=== PATIENT | male | born 1970 | race Caucasian/White ===

== ENCOUNTER 2024-07-06 21:30 | Emergency (ER) | payer BC, SELFPAY ==
[2024-07-06 21:47] VITALS: BP 168/105
[2024-07-06 22:10] LABS: Urine Albumin Negative (Neg - Trace); Urine Bilirubin Negative (Negative); Urine Character Clear (Clear); Urine Color Yellow; Urine Glucose Negative (Negative); Urine Ketone Negative (Negative); Urine Leukocyte Negative (Negative); Urine Nitrite Negative (Negative); Urine Occult Blood Negative (Negative); Urine Urobilinogen Negative (Neg - 1+)
[2024-07-06 22:11] LABS: % Basophils 0.7 % (0-2); % Eosinophils 4.6 % (0-6); % Immature Granulocytes 0.5 % (0-0.5); % Lymphocytes 31.9 % (20.5-51.1); % Monocytes 9.8 % (1.7-9.3); % Neutrophils 52.5 % (42.2-75.2); Absolute Eosinophils 0.3 10^3/uL (0-0.7); Absolute Lymphocytes 1.8 10^3/uL (1.2-3.4); Absolute Monocytes 0.6 10^3/uL (0.1-0.6); Hematocrit 41.3 % (39.0-52.0); Hemoglobin 14.4 g/dL (13.0-18.0); Mean Corp Hgb Conc. 34.9 g/dL (33.0-37.0); Mean Corpuscular Hgb 30.2 pg (27.0-31.0); Mean Corpuscular Volume 86.6 fL (80.0-94.0); Mean Platelet Volume 8.8 fL (7.4-10.4); Nucleated Red Blood Cells % 0 % (-); Platelet Count 274 10^3/uL (130-400); Red Blood Cell Count 4.77 10^6/uL (4.70-6.10); Red Cell Dist. Width 12.4 % (11.5-14.5); White Blood Cell Count 5.6 10^3/uL (4.8-10.8)
[2024-07-06 22:28] LABS: ALT (SGPT) 40 U/L (0-50); AST (SGOT) 30 U/L (17-59); Albumin 4.3 g/dl (3.5-5.0); Alkaline Phosphatase 53 U/L (38-126); Blood Urea Nitrogen 16 mg/dl (9-20); Calcium 9.6 mg/dl (8.4-10.2); Carbon Dioxide 28 mmol/L (22-30); Chloride 102 mmol/L (98-107); Glucose 92 mg/dl (70-99); Lipase 94 U/L (23-300); Potassium 4.3 mmol/L (3.5-5.1); Sodium 138 mmol/L (135-145); Total Bilirubin 0.5 mg/dl (0.2-1.3); eGFR > 60.00
--- NOTE | 2024-07-06 22:43 | ED.GENMED ---
History of Present Illness
General
Chief Complaint: Abdominal Pain
Time Seen by Provider: 07/06/24 22:32
History of Present Illness
History of Present Illness:
Patient presents to the emergency department with bruising to the right lower quadrant. States he has been bloated over the past 5 days. He is unsure of the etiology of the bruising. Denies any injury to the area. Endorses diffuse abdominal
discomfort denies constipation or diarrhea. Endorses urinary frequency
Past History
Past History
ED Past Medical History: Hypercholesterolemia and Psychiatric (anxiety)
ED Past Surgical History: None
Social History
Tobacco: Smoker (cigars, occassional)
Alcohol: Occasional
Drug: None
Personal:
Living: with family
Employment: Employed
Family History
Family History: CAD (father AR at 61 yo)
Phy Exam
Physical Exam
Physical Exam:
GENERAL APPEARANCE: NAD, well developed/ well nourished
EYES lids/conjunctiva normal
EARS/NOSE/THROAT Mucous membranes moist, uvula midline without oral pharyngeal erythema, exudate or swelling
HEAD/NECK normocephalic atraumatic, neck is supple.
RESPIRATORY respiratory effort normal, speaks in full sentences, no accessory muscle use. Lungs clear to auscultation without rhonchi, wheezes, rales
CARDIAC Regular rate and rhythm, no edema.
ABDOMINAL Soft, nontender. Mild distention noted. There is no fluid wave. There is superficial bruising to the right lower quadrant. There is no wounds or obvious sign of trauma otherwise
MUSCLES/EXTREMITIES No abnormal range of motion, no swelling.
SKIN Warm, pink and dry. No rashes
NEUROLOGICAL Speech is clear and appropriate. Normal level of consciousness. 5/5 strength in all extremities.
PSYCH Normal mood and affect. Judgement/competence is appropriate
Course
Orders/Labs/Results
Orders:
Orders
07/06/24 21:55
IV Insert/Care/Rem.- Treatment PRN
07/06/24 22:01
Complete Blood Count/With Diff Urgent
Comprehensive Metabolic Panel Urgent
Lipase Urgent
PT/INR [Prothrombin Time] Urgent
PTT Urgent
Urinalysis Reflex To Culture Urgent
Date Specimen was Collected: 07/06/24
Time Specimen was Collected: 21:55
07/06/24 22:41
CT Abd/pelvis W Iv Cont Urgent
Reason For Exam: bloating, bruising on abdomen unknown etiology
Abnormal Lab Results
07/06/24
22:01
Monocytes % 9.8 H %
(1.7-9.3)
07/06/24 22:01
07/06/24 22:01
Vital Signs
Initial and Last Documented VS:
Initial Vital Signs
Temp Pulse Resp BP Pulse Ox
99.2 F 73 20 168/105 100
07/06/24 21:47 07/06/24 21:47 07/06/24 21:47 07/06/24 21:47 07/06/24 21:47
Last Documented Vital Signs
Temp Pulse Resp BP Pulse Ox
99.2 F 58 16 154/107 99
07/06/24 21:47 07/07/24 01:07 07/07/24 01:07 07/07/24 01:07 07/07/24 01:07
*Critical Care Note
Total Time (30-74mins, 75-104mins- exclusive of procedures): Not Applicable
ED Attending Note
ED Attending Note
ED Attending Note:
patient with bruising to abdominal wall and mild abdominal distension
he did not have diarrhea or vomiting
no signs of sepsis
CT scan with liquid stool in small bowel with hazy mesentery. Possibly represeenting enteritis. Doubt bacterial given lack of fever or infectious symptoms. Will hold off antibiotics and recommend close outpatient follow up with primary doctor
return precautions given
labs otherwise reassuring no coagulopathy
-
Portions of this chart may have been created with voice recognition software.� Occasional wrong word or��sound alike� substitutions may have occurred due to the inherent limitations of voice recognition software.
Discharge Plan
Departure
Prescriptions:
No Action
losartan 25 mg Tablet
25 mg PO DAILY
omeprazole [Prilosec] 20 mg Capsule,Delayed Release(Dr/Ec)
20 mg PO DAILY
rosuvastatin 10 mg Tablet
10 mg PO DAILY
Referrals:
Sumit Rincon DO [Family Provider] -
Interventions
Interventions:
*Risk Screen - Suicide Last Done: 07/06/24 22:44
*General Assessment Last Done: 07/06/24 22:44
*Neglect/Abuse Screening Last Done: 07/06/24 22:44
*ED- Fall Risk Assessment Last Done: 07/06/24 21:47
*ED COVID-19 Vaccine History Last Done: 07/06/24 21:47
XZ-[id number]-Vqnbcsqlmo Assessment Last Done: 07/06/24 23:08
ED-Skin Assessment Last Done: 07/06/24 23:08
Discharge Date and Time
Print Language: WELSH
[2024-07-06 22:44] VITALS: BMI 27.3
[2024-07-06 22:48] VITALS: BP 156/102
--- NOTE | 2024-07-06 22:49 | EDRN ---
Pt has had bloating on R side of abdomen along with a bruise for 5 days. Pt does not know how he got the bruise. Pt says he has not injured himself. pt planned on calling his doctor tomorrow but he started looking on the internet and talked with
his which prompted this ED visit. Pt denies pain. Pt had nausea, no vomiting. Two nights ago pt had increased reflux which caused nausea. Intermittent cramping in abdomen. No fever/chills/, cp, sob, urinary symptoms however pt feels he has
been urinating more often. No constipation/diarrhea.
[2024-07-06 22:51] LABS: APTT 27.5 Sec (23.4-35.0); INR 0.87; PT 12.2 Sec (11.4-14.6)
[2024-07-06 22:53] VITALS: BP 166/106
[2024-07-06 22:55] VITALS: BP 163/108
[2024-07-07 01:07] VITALS: BP 154/107
== END 2024-07-07 01:41 | disposition home or self-care (01) ==
LOC: EMR 21:30
PROVIDERS: Emergency Medicine; EMERGENCY PHYSICIAN Emergency Medicine; FAMILY PHYSICIAN Family Medicine
DX: S30.1XXA Contusion of abdominal wall, initial encounter (principal); X58.XXXA Exposure to other specified factors, initial encounter; F17.290 Nicotine dependence, other tobacco product, uncomplicated
CPT/HCPCS: 99285; 74177; 80053; 81003; 83690; 85025; 85610; 85730; Q9967

== ENCOUNTER → 2024-08-12 10:01 | Outpatient (REF) | payer BC, SELFPAY | LOC: RAD 10:01 | PROVIDERS: ATTENDING PHYSICIAN Family Medicine | DX: K21.9 Gastro-esophageal reflux disease without esophagitis (principal) | CPT/HCPCS: 74246 ==